=== PATIENT | female | born 1985 | race Caucasian/White ===

== ENCOUNTER → 2022-05-10 | Outpatient (CLI) | payer BC ==
--- NOTE | 2022-05-13 07:54 | MM ---
Reason for Exam: Screening (asymptomatic). Baseline mammogram. Patient History: Menarche at age 11. First Full-Term at age 18. Maternal aunt had breast cancer under age 50. Last menstrual period: 04/23/2022 Risk Values: Jessi 5 year model risk: 0.3%. NCI Lifetime model risk: 7.4%. Prior Study Comparison: Patient's first Mammogram. Tissue Density: The breast tissue is heterogeneously dense. This may lower the sensitivity of mammography. Findings: Analyzed By CAD. There is no suspicious group of microcalcifications or suspicious mass in either breast. Overall Assessment: Negative, BI-RAD 1 Management: Screening Mammogram of both breasts in 1 year. A clinical breast exam by your physician is recommended on an annual basis and results should be correlated with mammographic findings. Electronically signed and approved by: Abraham Godinez D.O.
== END | disposition home or self-care (01) ==
LOC: RADMAMWWP 07:27
PROVIDERS: ATTEND Family Medicine
DX: Z12.31 Encounter for screening mammogram for malignant neoplasm of breast (principal); Z80.3 Family history of malignant neoplasm of breast
CPT/HCPCS: 77063; 77067

== ENCOUNTER → 2023-03-27 | Day surgery (SDC) | payer BC, OTHER ==
[2023-03-21 15:55] VITALS: BMI 20.5
[~2023-03-27] MED LIST: IV FLUID CONTINUATION 500 ML IV ONE; SODIUM CHLORIDE 0.9% 1,000 ML IV SCH
[2023-03-27 12:55] VITALS: BP 107/65; PULSE 98; RESP 18; TEMP 98.9
--- NOTE | 2023-03-27 15:20 | P.EPPROC ---
- EP Procedure Note Electrophysiology Procedure Note: Diagnosis Recurrent syncope Twelve-lead EKG shows sinus mechanism normal [place] narrow QRS normal ST segments Tilt table test per protocol Baseline blood pressure 110/62 mmHg. Baseline heart rate 70 beats a minute Patient was tilted upright at bedtime and 70 per protocol. There was an immed iate increase in heart rate to 98 beats a minute. Following that blood pressure remained stable in the heart rate remained in the mid 90s The patient had no complaints When she was laid supine heart rate came down to 73 beats a minute to the baseline Impression Orthostatic intolerance No neurocardiogenic phenomena noted Normal twelve-lead EKG
== END ==
LOC: CATHEP 12:19
PROVIDERS: ATTEND Internal Medicine Clinical Cardiac Electrophysiology
DX: R55 Syncope and collapse (principal); Z79.899 Other long term (current) drug therapy
CPT/HCPCS: 93660

== ENCOUNTER → 2023-10-24 | Outpatient (CLI) | payer BC, OTHER ==
--- NOTE | 2023-10-27 08:56 | MM ---
Reason for Exam: Screening (asymptomatic). Last mammogram was performed 1 year(s) and 5 month(s) ago. Patient History: Menarche at age 11. First Full-Term at age 18. Maternal aunt had breast cancer under age 50. Last menstrual period: 10/16/2023 Risk Values: Jessi 5 year model risk: 0.4%. NCI Lifetime model risk: 7.4%. Prior Study Comparison: 05/10/2022 Bilateral MG 3D screening mammo w/cad, [facility]. Tissue Density: The breasts are heterogeneously dense, which may obscure small masses. Findings: Analyzed By CAD. The pattern is symmetrical. No significant change is evident. No suspicious groups of microcalcifications, spiculated or lobular masses, architectural distortion or other secondary signs of malignancy are mammographically apparent. Overall Assessment: Benign, BI-RAD 2 Management: Screening Mammogram of both breasts in 1 year. A negative mammogram report should not preclude additional follow up of suspicious palpable abnormalities. Patient should continue monthly self breast exam. A clinical breast exam by your physician is recommended on an annual basis and results should be correlated with mammographic findings. Electronically signed and approved by: Onel Benedict D.O. Radiologis
== END | disposition home or self-care (01) ==
LOC: RADMAMWWP 12:37
PROVIDERS: ATTEND Family Medicine
DX: Z12.31 Encounter for screening mammogram for malignant neoplasm of breast (principal); Z80.3 Family history of malignant neoplasm of breast
CPT/HCPCS: 77063; 77067